=== PATIENT | male | born 1965 | race Caucasian/White ===

== ENCOUNTER 2018-07-31 15:08 | Inpatient (IN) | payer OTHER ==
[~2018-07-31] VITALS: Ht 167.6 cm; Wt 65.8 kg
[2018-07-31] MEDS: NACL 0.9% 1,000 ML IV SCH (00:02)
[2018-07-31 15:28] VITALS: BP 106/71
--- NOTE | 2018-07-31 15:36 | NUR ---
BACK TO [facility] --WILL WAIT FOR AVAILABLE ROOM FOR MD MARES
--- NOTE | 2018-07-31 16:23 | NUR ---
PT TO ER BED 6 VIA WHEELCHAIR
--- NOTE | 2018-07-31 16:35 | NUR ---
PT BIB SELF TO THE ED WITH THE CHIEF C/O RIGHT FOOT PAIN. PT HAS DIABETIC WOUND ON LEFT FOOT. AMPUTATED RIGHT GREAT TOE. BLACK GANGRENE 2ND TOE, FOUL SMELLING. MOVES OTHER TOES. SWELLING FEET. PER PT GREAT TOE WAS AMPUTED ON END OF APR 2018. PT WAS RECOMMENDED TO DO BKA BY HIS DOCTOR BUT PT REFUSED.
[2018-07-31] MEDS ORDERED: NACL 0.9% 500 ML IV SCH (17:31)
--- NOTE | 2018-07-31 17:59 | NUR ---
LAB AT THE BEDSIDE. PT ENCOURAGED TO GIVE URINE FOR UA. URINAL PROVIDED.
--- NOTE | 2018-07-31 18:08 | NUR ---
CALLED [facility] #[phone]. SPOKE TO DEAN. REQUESTED TO FAX MEDICINE LIST OF PT CURRENTLY TAKING MEDS AND INFORMATION ON [facility] FAX [phone]. PT MADE AWARE.
--- NOTE | 2018-07-31 18:11 | NUR ---
EKG BEING DONE AT THIS TIME.
[2018-07-31 18:14] LABS: BASOPHILS # (AUTO) 0.1 K/uL (0.00-0.22); BASOPHILS % (AUTO) 0.8 % (0.0-2.0); EOSINOPHILS # (AUTO) 1.7 K/uL (0-0.4); EOSINOPHILS % (AUTO) 16.9 % (0.0-4.0); HEMATOCRIT 38.2 % (36-52); HEMOGLOBIN 12.9 g/dL (12.0-18.0); LYMPHOCYTES # (AUTO) 1.9 K/uL (2.0-11.5); LYMPHOCYTES % (AUTO) 19.4 % (20.5-51.1); MEAN CORPUSCULAR HEMOGLOBIN 32 pg (27-31); MEAN CORPUSCULAR HGB CONC 34 g/dL (33-37); MEAN CORPUSCULAR VOLUME 93.9 fL (80-94); MONOCYTES # (AUTO) 0.5 K/uL (0.8-1.0); NEUTROPHILS # (AUTO) 5.8 K/uL (1.8-7.7); NEUTROPHILS % (AUTO) 57.9 % (42.2-75.2); PLATELET COUNT (AUTO) 294 K/uL (140-450); RED BLOOD CELL COUNT(AUTO) 4.06 MIL/uL (4.20-6.10); RED CELL DISTRIBUTION WIDTH 14.6 % (11.6-13.7); WHITE BLOOD COUNT (AUTO) 9.9 K/uL (4.8-10.8)
[2018-07-31 18:23] LABS: CARBON DIOXIDE 27.1 mmol/L (21-32); CREATININE 0.9 mg/dL (0.7-1.3); POTASSIUM 4.1 mmol/L (3.5-5.1)
[2018-07-31 18:26] LABS: PROTHROMBIN TIME 10.4 secs (10.8-13.4)
[2018-07-31 18:29] LABS: ALBUMIN 4.1 g/dL (3.4-5.0); TOTAL BILIRUBIN 0.3 mg/dL (0.0-1.0)
[2018-07-31] MEDS ORDERED: NACL 0.9% 1,000 ML IV ONE (18:50)
[2018-07-31] MEDS ORDERED: CLINDAMYCIN 900 MG in DEXTROSE 5% 100 ML IV ONE (18:50)
[2018-07-31] MEDS ORDERED: CLINDAMYCIN 900 MG/6 ML VIAL IV ONE (19:14)
--- NOTE | 2018-07-31 19:23 | NUR ---
REPORT GIVEN TO ASSEMBLYMAN OR WOMAN RN FOR CONTINUITY OF CARE.
[2018-07-31] MEDS ORDERED: MAGN400S60 PO (19:47)
[2018-07-31] MEDS ORDERED: LEVEMIR SUBQ (19:47)
[2018-07-31] MEDS ORDERED: GABA300C PO (19:47)
[2018-07-31] MEDS ORDERED: ATOR10TA PO (19:47)
[2018-07-31] MEDS ORDERED: MULT-1869 PO (19:47)
[2018-07-31] MEDS ORDERED: NA P133E RC (19:47)
[2018-07-31] MEDS ORDERED: DOCU-299 PO (19:47)
[2018-07-31] MEDS ORDERED: HYDR-5122 PO (19:47)
[2018-07-31] MEDS ORDERED: METO50TE2 PO (19:47)
[2018-07-31] MEDS ORDERED: ACET-2619 PO (19:47)
[2018-07-31] MEDS ORDERED: METF1000 PO (19:47)
[2018-07-31] MEDS ORDERED: BISA-213 RC (19:47)
[2018-07-31] MEDS ORDERED: RANI150T8 PO (19:47)
[2018-07-31] MEDS ORDERED: [UNRECOGNIZED DRUG - CODE] PO (19:47)
[2018-07-31] MEDS ORDERED: KEP500 PO (19:47)
--- NOTE | 2018-07-31 19:49 | NUR ---
Patient noted to have existing wounds upon arrival to ER. Photos taken of wound and placed in chart. Wound covered with dressing. Physician informed.
--- NOTE | 2018-07-31 19:50 | NUR ---
Patient will be admitted to care of Dr. weaver. Admited to [facility]. Will go to room 105a. Belongings list completed. Report to ILYA Carrasco. Transfer of care at this time.
[2018-07-31 20:00] VITALS: BP 129/69
--- NOTE | 2018-07-31 20:00 | NUR ---
PATIENT ARRIVED FOR ER, RECEIVED REPORT. ASSESSMENT COMPLETED, MRSA SCREEN COLLECTED AND SENT TO LAB, V/S STABLE, NOTED RIGHT FOOT GANGRENE WRAPPED, PATIENT DENIES PAIN. ADMISSION QUESTIONS COMPLETED. WILL CALL DR GARCIA FOR ORDERS.
--- NOTE | 2018-07-31 20:30 | NUR ---
FLUID BOLUS CONTINUING TO INFUSE
[2018-07-31 20:36] LABS: APPEARANCE,URINE CLEAR (CLEAR); BILIRUBIN,URINE NEGATIVE (NEGATIVE); BLOOD, URINE NEGATIVE (NEGATIVE); COLOR,URINE YELLOW (YELLOW); LEUKOCYTE ESTERASE ,URINE NEGATIVE (NEGATIVE); NITRITE, URINE NEGATIVE (NEGATIVE); UGLUCOSE NEGATIVE (NEGATIVE)
--- NOTE | 2018-07-31 21:37 | NUR ---
CALLED DR MÉNDEZ FOR ORDERS
--- NOTE | 2018-07-31 23:49 | NUR ---
CALL FROM DR JUNIOR, ORDERS TO KEEP PATIENT NPO, HAVE PATIENT CLEARED BY CARDIOLOGY AND TO CALL DR WING Long, VENOUS US AND ARTERIAL US OF RIGHT LEG, CULTURES OF RIGHT TOE, AND ZOSYN 3.375 Q6H.
[2018-08-01] VITALS: BP 130/66
--- NOTE | 2018-08-01 | NUR ---
V/S TAKEN, ALL STABLE NO FEVER
[2018-08-01] MEDS ORDERED: PIPERACILLIN/TAZOBACTAM 3.375 GM VIAL IV ONE ×2 (00:34→05:57)
[2018-08-01] MEDS: PIPER/TAZO 3.375GM/D5W PREMIX 50 ML IV SCH ×4 (00:48→22:31)
[2018-08-01] MEDS: NACL 0.9% 1,000 ML IV SCH ×2 (00:49→16:59)
--- NOTE | 2018-08-01 01:00 | NUR ---
WOUND CARE PROVIDED ACCORDING TO MD ORDER, COLLECTED SPECIMEN FOR WOUND AND SENT LAB FOR CULTURES.
--- NOTE | 2018-08-01 01:30 | NUR ---
CALLED DR DIMAS TO NOTIFY THAT PATIENT NEEDS CLEARANCE FROM CARDIOLOGY PRIOR TO SX PER DR JUNIOR
--- NOTE | 2018-08-01 01:46 | NUR ---
PATIENT C/O PAIN AT IV SITE STARTED NEW IV IN LEFT FA 22 G INFUSING ZOSYN
--- NOTE | 2018-08-01 04:00 | NUR ---
DUE ANTIBIOTIC GIVEN
[2018-08-01] MEDS: CLINDAMYCIN 900 MG in DEXTROSE 5% 100 ML IV SCH ×3 (04:11→20:40)
[2018-08-01] MEDS ORDERED: CLINDAMYCIN 900 MG/6 ML VIAL IV ONE (04:13)
--- NOTE | 2018-08-01 05:26 | NUR ---
LABS BEING DRAWN
[2018-08-01] MEDS: BLOOD GLUCOSE MONITORING 1 DEV DEV FS SCH ×4 (05:35→20:58)
--- NOTE | 2018-08-01 06:06 | NUR ---
DUE ZOSYN GIVEN, ASKED PATIENT TO PUT ON YELLOW GOWN PATIENT SLEEPING
[2018-08-01 07:00] LABS: BASOPHILS # (AUTO) 0.1 K/uL (0.00-0.22); EOSINOPHILS # (AUTO) 1.6 K/uL (0-0.4); EOSINOPHILS % (AUTO) 20.8 % (0.0-4.0); HEMATOCRIT 33.5 % (36-52); HEMOGLOBIN 11.6 g/dL (12.0-18.0); LYMPHOCYTES # (AUTO) 1.7 K/uL (2.0-11.5); MEAN CORPUSCULAR HEMOGLOBIN 32 pg (27-31); MEAN CORPUSCULAR HGB CONC 35 g/dL (33-37); MEAN CORPUSCULAR VOLUME 93.1 fL (80-94); MONOCYTES # (AUTO) 0.5 K/uL (0.8-1.0); MONOCYTES % (AUTO) 6.4 % (1.7-9.3); NEUTROPHILS # (AUTO) 3.8 K/uL (1.8-7.7); NEUTROPHILS % (AUTO) 49.8 % (42.2-75.2); PLATELET COUNT (AUTO) 245 K/uL (140-450); RED CELL DISTRIBUTION WIDTH 14.7 % (11.6-13.7); WHITE BLOOD COUNT (AUTO) 7.7 K/uL (4.8-10.8)
--- NOTE | 2018-08-01 07:21 | NUR ---
ENDORSED PATIENT TO DAY SHIFT NURSE PATIENT STABLE
--- NOTE | 2018-08-01 07:22 | NUR ---
GOT BEDSIDE REPORT FROM ILYA IBARRA. PATIENT ON MED SURGE AND STANDARD PRECAUTIONS IN PLACE. PATIENT AAOX4 AND ON ROOM AIR, NO DISTRESS NOTED. R FOOT GANGRENE. FALL RISK PROTOCOL IN PLACE. IV ON L FA 22 G INFUSING NS AT 75, IV ASYMPTOMATIC PATENT AND INTACT. BED IN LOW POSITION, CALL LIGHT WITHIN REACH, SIDE RAILS X2 UP
[2018-08-01 07:25] LABS: ALBUMIN 3.3 g/dL (3.4-5.0); ANION GAP 14.6 (8-16); CARBON DIOXIDE 25.6 mmol/L (21-32); CREATININE 0.8 mg/dL (0.7-1.3); POTASSIUM 4.2 mmol/L (3.5-5.1); TOTAL BILIRUBIN 0.5 mg/dL (0.0-1.0)
[2018-08-01] MEDS ORDERED: DEXTROSE 50% 50 ML SYR IVP PRN (07:30)
[2018-08-01 07:39] LABS: PROTHROMBIN TIME 10.7 secs (10.8-13.4)
[2018-08-01 08:00] VITALS: BP 117/62
--- NOTE | 2018-08-01 09:58 | NUR ---
PATIENT HAS BEEN SCREENED AND CATEGORIZED HIGH NUTRITION RISK. PATIENT WILL BE SEEN WITHIN 1-2 DAYS OF ADMISSION. 08/01/18-08/02/[address]
--- NOTE | 2018-08-01 10:00 | NUR ---
PATIENT SLEEPING. NO DISTRESS, ON ROOM AIR
--- NOTE | 2018-08-01 12:11 | NUR ---
ADMINISTERED SCHEDULED MEDS. PATIENT TOLERATED WELL
--- NOTE | 2018-08-01 13:27 | NUR ---
08/01/18 RD INITIAL ASSESSMENT COMPLETED PLEASE REFER TO NUTRITION ASSESSMENT UNDER CARE ACTIVITY FOR ESTIMATED NUTRITIONAL NEEDS. 1. CONTINUE NPO MEDICALLY NECESSARY 2. RECOMMEND CCHO DIET WHEN PT IS READY TO RECEIVE NUTRITION. 3. RECOMMEND VITAMIN C 100MG BID 4. DIABETES EDUCATION WAS PROVIDED 5. RD TO FOLLOW-UP 3-5 DAYS, MODERATE RISK KRISTINE NUNES RD
--- NOTE | 2018-08-01 14:15 | NUR ---
PATIENT WATCHING TV, NO DISTRESS NOTED ON ROOM AIR
[2018-08-01 16:00] VITALS: BP 139/68
--- NOTE | 2018-08-01 17:00 | NUR ---
PATIENT WATCHING TV. ON ROOM AIR, NO DISTRESS NOTED
--- NOTE | 2018-08-01 19:05 | NUR ---
GAVE REPORT TO ILYA IBARRA. PATIENT ENDORSED FOR CONTINUITY OF CARE
--- NOTE | 2018-08-01 19:30 | NUR ---
RECEIVED BEDSIDE REPORT FROM DAY SHIFT RN, PATIENT IN BED, NO SIGNS OF DISTRESS, NOTED RIGHT TOW GANGRENE, DRESSING CHANGED, IV IN LEFT FA 22 G INFUSING NS AT 75, EXPLAINED PLAN OF CARE, DR WING Long SAW PATIENT PLAN FOR ECHO TOMORROW FOR CARDIAC CLEARANCE. BED ALARM ON
--- NOTE | 2018-08-01 20:40 | NUR ---
DUE MEDICATIONS GIVEN GAVE 2 UNITS HUMALOG
[2018-08-01] MEDS: INSULIN LISPRO SLIDING SCALE 100 UNITS/ML VIAL SUBQ PRN (20:45)
--- NOTE | 2018-08-01 22:00 | NUR ---
AMBULATED TO RESTROOM NEEDS ONE PERSON ASSISTANCE, WOUND STARTED BLEEDING AFTER AMBULATING PATIENT DENIES PAIN, CHANGED DRESSING
[2018-08-02] VITALS: BP 128/78
--- NOTE | 2018-08-02 00:10 | NUR ---
V/S TAKEN ALL STABLE, PATIENT DENIES PAIN
--- NOTE | 2018-08-02 01:55 | NUR ---
PATIENT SLEEPING IN BED NO SIGNS OF DISTRESS.
[2018-08-02] MEDS: CLINDAMYCIN 900 MG in DEXTROSE 5% 100 ML IV SCH ×3 (04:10→20:33)
[2018-08-02] MEDS: NACL 0.9% 1,000 ML IV SCH ×2 (04:10→18:57)
--- NOTE | 2018-08-02 04:11 | NUR ---
DUE CLEOCIN GIVEN, STARTED NEW BAG OF NS AT 75 ML/HR
[2018-08-02] MEDS: PIPER/TAZO 3.375GM/D5W PREMIX 50 ML IV SCH ×3 (06:17→23:09)
[2018-08-02] MEDS: BLOOD GLUCOSE MONITORING 1 DEV DEV FS SCH ×4 (06:22→21:08)
--- NOTE | 2018-08-02 06:22 | NUR ---
BG 145 NO COVERAGE NEEDED
--- NOTE | 2018-08-02 07:08 | NUR ---
ENDORSED PATIENT TO DAY SHIFT NURSE PATIENT STABLE
--- NOTE | 2018-08-02 07:09 | NUR ---
GOT BEDSIDE REPORT FROM ILYA IBARRA. PATIENT ON MED SURGE AND STANDARD PRECAUTIONS IN PLACE. PATIENT AAOX4 AND ON ROOM AIR, NO DISTRESS NOTED. R FOOT GANGRENE DRESSING INTACT. PATIENT AMBULATORY AND CONTINENT. IV ON L FA 22 G INFUSING NS AT 75, IV ASYMPTOMATIC PATENT AND INTACT. WHEELCHAIR AT BEDSIDE. BED IN LOW POSITION, CALL LIGHT WITHIN REACH, SIDE RAILS X2 UP
[2018-08-02 08:00] VITALS: BP 163/73
[2018-08-02 08:23] LABS: BASOPHILS # (AUTO) 0.1 K/uL (0.00-0.22); BASOPHILS % (AUTO) 1.1 % (0.0-2.0); EOSINOPHILS # (AUTO) 1.1 K/uL (0-0.4); EOSINOPHILS % (AUTO) 17.9 % (0.0-4.0); HEMATOCRIT 32.3 % (36-52); HEMOGLOBIN 11.2 g/dL (12.0-18.0); LYMPHOCYTES # (AUTO) 1.6 K/uL (2.0-11.5); LYMPHOCYTES % (AUTO) 25.5 % (20.5-51.1); MEAN CORPUSCULAR HEMOGLOBIN 32 pg (27-31); MEAN CORPUSCULAR HGB CONC 35 g/dL (33-37); MEAN CORPUSCULAR VOLUME 92.7 fL (80-94); MONOCYTES # (AUTO) 0.6 K/uL (0.8-1.0); MONOCYTES % (AUTO) 9.7 % (1.7-9.3); NEUTROPHILS # (AUTO) 2.9 K/uL (1.8-7.7); NEUTROPHILS % (AUTO) 45.8 % (42.2-75.2); PLATELET COUNT (AUTO) 235 K/uL (140-450); RED BLOOD CELL COUNT(AUTO) 3.48 MIL/uL (4.20-6.10); RED CELL DISTRIBUTION WIDTH 14.9 % (11.6-13.7); WHITE BLOOD COUNT (AUTO) 6.3 K/uL (4.8-10.8)
[2018-08-02 08:43] LABS: ALBUMIN 3.3 g/dL (3.4-5.0); ANION GAP 14.6 (8-16); CARBON DIOXIDE 24.2 mmol/L (21-32); CREATININE 0.8 mg/dL (0.7-1.3); POTASSIUM 3.8 mmol/L (3.5-5.1); TOTAL BILIRUBIN 0.5 mg/dL (0.0-1.0)
--- NOTE | 2018-08-02 09:23 | NUR ---
PATIENT SLEEPING, ON ROOM AIR NO DISTRESS NOTED
--- NOTE | 2018-08-02 12:07 | NUR ---
ADMINISTERED SCHEDULED MED. PATIENT TOLERATED WELL
--- NOTE | 2018-08-02 14:17 | NUR ---
PT. SEEN BY DR. JUNIOR AND PENDING AMPUTATION TO RIGHT FOOT, PLAN OF CARE DISCUSSED WITH PRIMARY RN, RECOMMENDATION TO RIGHT FOOT GANGRENE APPLY SOAKED 4X4 BETADINE SOLUTION, COVER WITH DRY DRESSING AND WRAP WITH KERLIX ROLLS QD AND PRN IF SOILING.
--- NOTE | 2018-08-02 14:32 | NUR ---
MOTHER AT BEDSIDE, PATIENT ON ROOM AIR NO DISTRESS NOTED, WATCHING TV
--- NOTE | 2018-08-02 15:20 | NUR ---
CLEANSED R FOOT WITH NS. SOAKED GAUZE WITH BETADINE, WRAPPED W KERLIX DRESSING. PATIENT DENIED ANY PAIN IN FOOT
[2018-08-02 16:00] VITALS: BP 127/69
--- NOTE | 2018-08-02 16:48 | NUR ---
BLOOD SUGAR OF 136, NO COVERAGE NEEDED
--- NOTE | 2018-08-02 19:20 | NUR ---
GAVE REPORT TO ILYA WILHELM. PATIENT ENDORSED IN STABLE CONDITION. OR NURSE LEATHA SPOKE TO ME AND CHOCO STATING DR. JUNIOR WILL PERFORM SURGERY TOMORROW. PATIENT AWARE
--- NOTE | 2018-08-02 19:20 | NUR ---
RECEIVED REPORT FROM CLEMENTINA CARABALLO DAYSHIFT NURSE AT BEDSIDE FOR CONTINUITY OF CARE, PT N STABLE CONDITION. PT MADE AWARE OF SCHEDULED SURGERY TOMORROW, PER DR. JUNIOR, PT MAY EAT NOW AND BE NPO POST MIDNIGHT. SANDWICH BROUGHT UP FROM KITCHEN REQUESTED.
--- NOTE | 2018-08-02 19:53 | NUR ---
PT IN BED SANDWICH AT BEDSIDE, PT IN BED WITH ALL FALLS PRECAUTIONS IN PLACE, AND CALL LAKHANI IN REACH. PT AOX4 WITH IV SITE ON R HAND 22 GUAGE, INTACT AND FLUSHED PATENT, N/S RUNNING AT 75MLS/HR ORDERED. PT HAS NO C/O OF PAIN . RIGHT FOOT ELEVATED WITH DRESSING INTACT. ALL REQUESTED NEEDS ATTENDED. V/S FOLLOWS T 98.4 P 83 R 18 B/P 142/76 AND 02 98% ON ROOM AIR.
[2018-08-02] MEDS ORDERED: CLINDAMYCIN 900 MG/6 ML VIAL IV ONE (20:28)
--- NOTE | 2018-08-02 20:38 | NUR ---
CLEOCIN HUNG ORDERED AT 100MLS/HR. N/S FLUID REPLACED. PT HAS NO C/O VOICED AT THIS TIME .
[2018-08-02] MEDS: INSULIN LISPRO SLIDING SCALE 100 UNITS/ML VIAL SUBQ PRN (21:10)
--- NOTE | 2018-08-02 21:15 | NUR ---
FINGER STICK IS 160, GIVEN 2 UNITS OF HUMALOG COVERAGE IN LEFT DELTOID. PT REQUEST PAIN MEDICATION, NO PAIN MEDICATION IS ORDERED, CALLED [facility] EMMA SOTO MD FOR DR. GARCIA.
--- NOTE | 2018-08-02 21:22 | NUR ---
DR. BLANCO FITTER TYPE BAR AND SEGMENT ORDERED TORADOL 30MG IVP Q 6HRS PRN FOR PAIN RELIEF. ORDERS PLACED IN EMAR.
[2018-08-02] MEDS ORDERED: KETOROLAC 30 MG/ML VIAL IVP PRN (21:25)
--- NOTE | 2018-08-02 23:49 | NUR ---
KYAW HUNG ORDERED. PT OFFERED TORADOL PRIOR TO WOUND CARE, BUT REFUSED DUE TO POSSIBLE SIDE EFFECTS. RIGHT FOOT REDRESSED UPON REQUEST. V/S FOLLOWS T 98.5 P 78 R 18 B/P 144/75 02 97% ON ROOM AIR.
[2018-08-03] VITALS (10 sets, daily range): BP systolic 118–150; BP diastolic 66–79
--- NOTE | 2018-08-03 01:30 | NUR ---
PT ASLEEP, RESPIRATIONS EVEN AND UNLABORED, NO S/S OF PAIN OR DISTRESS NOTED. ALL FALLS PRECAUTIONS IN PLACE AND NORMAL SALINE RUNNING ORDERED.AT 75MLS/HR. R FOOT ELEVATED ON PILLOW , DRESSINGS DRY AND INTACT.
--- NOTE | 2018-08-03 03:30 | NUR ---
PT IN BED SLEEPING NO S/S OF PAIN OR DISTRESS NOTED, ALL FALLS PRECAUTIONS IN PLACE AND N/S RUNNING AT 75MLS/HR ORDERED.
[2018-08-03] MEDS: CLINDAMYCIN 900 MG in DEXTROSE 5% 100 ML IV SCH ×3 (05:13→20:30)
[2018-08-03] MEDS ORDERED: CLINDAMYCIN 900 MG/6 ML VIAL IV ONE (05:15)
[2018-08-03] MEDS: PIPER/TAZO 3.375GM/D5W PREMIX 50 ML IV SCH ×3 (06:29→23:51)
[2018-08-03] MEDS: BLOOD GLUCOSE MONITORING 1 DEV DEV FS SCH ×4 (06:36→21:09)
--- NOTE | 2018-08-03 06:48 | NUR ---
ZOSYN HUNG ORDERED, RUNNING AT 100MLS/HR, ORDERED. FINGERSTICK IS 151, NO COVERAGE GIVEN DUE TO PT NPO STATUS AND HAVING SURGERY TODAY.
[2018-08-03 06:50] LABS: ALBUMIN 3.2 g/dL (3.4-5.0); ANION GAP 13.9 (8-16); CARBON DIOXIDE 23.9 mmol/L (21-32); CREATININE 0.8 mg/dL (0.7-1.3); POTASSIUM 3.8 mmol/L (3.5-5.1); TOTAL BILIRUBIN 0.3 mg/dL (0.0-1.0)
--- NOTE | 2018-08-03 07:18 | NUR ---
CARE ENDORSED TO CLEMENTINA CARABALLO DAYSHIFT NURSE AT BEDSIDE, PT IN STABLE CONDITION.
--- NOTE | 2018-08-03 07:19 | NUR ---
GOT BEDSIDE REPORT FROM ILYA WILHELM. PATIENT AAOX4 AND ON ROOM AIR, NO DISTRESS NOTED. PATIENT ON MED SURGE, STANDARD PRECAUTIONS IN PLACE, SKIN INTACT. PATIENT UNABLE TO AMBULATE AND CONTINENT WITH URINAL AT BEDSIDE. IV ON R FA 22 G INFUSING NS AT 75, IV ASYMPTOMATIC PATENT AND INTACT. R TOE GANGRENE DRESSING CLEAN DRY AND INTACT. BED IN LOW POSITION, CALL LIGHT WITHIN REACH, SIDE RAILS X2 UP
[2018-08-03] MEDS: NACL 0.9% 1,000 ML IV SCH ×2 (08:00→21:17)
[2018-08-03 09:35] LABS: BASOPHILS % (AUTO) 0.5 % (0.0-2.0); EOSINOPHILS % (AUTO) 17.7 % (0.0-4.0); HEMOGLOBIN 11.4 g/dL (12.0-18.0); LYMPHOCYTES # (AUTO) 1.5 K/uL (2.0-11.5); LYMPHOCYTES % (AUTO) 28.2 % (20.5-51.1); MEAN CORPUSCULAR HEMOGLOBIN 32 pg (27-31); MEAN CORPUSCULAR HGB CONC 34 g/dL (33-37); MEAN CORPUSCULAR VOLUME 92.8 fL (80-94); MONOCYTES # (AUTO) 0.5 K/uL (0.8-1.0); NEUTROPHILS # (AUTO) 2.4 K/uL (1.8-7.7); NEUTROPHILS % (AUTO) 44.6 % (42.2-75.2); PLATELET COUNT (AUTO) 241 K/uL (140-450); RED BLOOD CELL COUNT(AUTO) 3.56 MIL/uL (4.20-6.10); RED CELL DISTRIBUTION WIDTH 14.4 % (11.6-13.7); WHITE BLOOD COUNT (AUTO) 5.4 K/uL (4.8-10.8)
--- NOTE | 2018-08-03 10:43 | NUR ---
CONSENT FOR SURGERY OF R TOE AMPUTATION AND DEBRIDEMENT OF R FOOT SIGNED
--- NOTE | 2018-08-03 10:48 | NUR ---
PATIENT PICKED UP FOR SURGERY
[2018-08-03] MEDS ORDERED: BUPIVACAINE-MPF 0.5% 30 ML VIAL INJ ONE (10:51)
[2018-08-03] MEDS ORDERED: SEVOFLURANE 250 ML BTL INH ONE (11:06)
[2018-08-03] MEDS ORDERED: PROPOFOL 200 MG/20 ML VIAL IV ONE (11:06)
[2018-08-03] MEDS ORDERED: LIDOCAINE 2% 100 MG/5 ML SYR IVP ONE (11:06)
[2018-08-03] MEDS ORDERED: fentaNYL 0.05 MG/ML VIAL ONE (11:13)
[2018-08-03] MEDS ORDERED: MIDAZOLAM 2 MG/2 ML VIAL ONE (11:14)
[2018-08-03] MEDS ORDERED: HYDROmorphone 1 MG/ML AMP IVP PRN (11:25)
[2018-08-03] MEDS ORDERED: ONDANSETRON 4 MG/2 ML VIAL IVP PRN (11:25)
[2018-08-03] MEDS ORDERED: BLOOD GLUCOSE MONITORING 1 DEV DEV FS SCH (12:00)
--- NOTE | 2018-08-03 12:40 | NUR ---
PATIENT BACK FROM OR. PATIENT IN STABLE CONDITION VITALS FOLLOWS: T: 97.9 O2: 98% BP: 119/74 HR: 77 RR:18
[2018-08-03] MEDS: GAUZE TP SCH (13:10)
--- NOTE | 2018-08-03 13:27 | NUR ---
ADMINISTERED SCHEDULED MEDS. PATIENT TOLERATED WELL
--- NOTE | 2018-08-03 15:04 | NUR ---
PATIENT SLEEPING. ON ROOM AIR, NO DISTRESS NOTED, VITALS STABLE POST SURGERY
--- NOTE | 2018-08-03 17:50 | NUR ---
INSTRUCTED PATIENT TO USE INCENTIVE SPIROMETER. PATIENT STATED HE KNOWS HOW TO USE IT AND HAS USED ONE IN THE PAST.
--- NOTE | 2018-08-03 19:15 | NUR ---
RECEIVED REPORT FROM CLEMENTINA CARABALLO DAYSHIFT NURSE AT BEDSIDE FOR CONTINUITY OF CARE, PT IN STABLE CONDITION.
--- NOTE | 2018-08-03 19:15 | NUR ---
GAVE BEDSIDE REPORT TO ILYA WILHELM. PATIENT ENDORSED IN STABLE CONDITION
--- NOTE | 2018-08-03 20:01 | NUR ---
PT SITTING IN BED AOX4, HOB UP 45%. ALL FALLS PRECAUTIONS IN PLACE. PT RT FOOT ELEVATED ON PILLOW AND HAS DRESSING INTACT FROM SURGERY. PT HAS NO C/O OF PAIN AT THIS TIME. LUNGS CLEAR AND BOWEL SOUNDS PRESENT. V/S FOLLOWS T 98.2 P 88 R 18 B/P 150/77 02 97% ON ROOM AIR. N/S RUNNING AT 75MLS/HR ORDERED. IV SITE ON RIGHT F/A 22G INTACT AND FLUSHED PATENT. CALL LAKHANI AND TRAY TABLE IN REACH.
[2018-08-03] MEDS: INSULIN LISPRO SLIDING SCALE 100 UNITS/ML VIAL SUBQ PRN (21:12)
--- NOTE | 2018-08-03 21:15 | NUR ---
PT RUNNING CLECON IV ABT ORDERED. IV SITE INTACT AND FLUSHED PATENT. PT HAS NO C/O OF PAIN AT THIS TIME. PT FINGERSTICK IS 205, HE WAS GIVEN 4 UNITS OF HUMALOG COVERAGE ORDERED. PT SAID THAT HE FEEL THOUGH HE MAY HAVE A BOWEL MOVEMENT SOON. PRIMARY NURSE TOLD HIM THAT WHEN HE FEELS READY TO HAVE A BM THAT WE CAN PUT HIM ON A BED PAULA. PT CONCERNED HOW HE WILL CLEAN HIMSELF, PRIMARY NURSE SAID THAT WE CAN DISCONNECT IV WHEN HE IS ON BED PAULA AND THAT ITS NOT A GOOD IDEA TO GET UP AND BEAR WEIGHT ON THAT FOOT AND THAT EVEN A PIVOT TRANSFER TO [facility] COULD CAUSE HIM TO PUT PRESSURE ON THE FOOT WHICH MAY CAUSE BLEEDING TO THE SITE. PT VERBALIZED UNDERSTANDING.
--- NOTE | 2018-08-03 23:03 | NUR ---
PT HAD A LARGE SOFT BM IN BED. NO C/O OF PAIN REPORTED. PT REMINDED NOT TO PUT WEIGHT ON RIGHT FOOT . PT RIGHT FOOT DRESSINGS INTACT AND LEFT ELEVATED ON A PILLOW WITH HEELS FLOATED.
--- NOTE | 2018-08-03 23:35 | NUR ---
MAYASYN HUNG AND RUNNING ORDERED AT 100M,LS/HR. PT IN BED WITH ALL FALLS PRECAUTIONS IN PLACE V/S FOLLOWS T 97.7 P 82 R 18 B/P 143/72 02 99% ON ROOM AIR. PT DENIES PAIN AT THIS TIME, ALL REQUESTED NEEDS ATTENDED BY STAFF WITH TRAY TABLE AND CALL LAKHANI IN REACH.
--- NOTE | 2018-08-04 02:29 | NUR ---
PT IN BED SLEEPING, ALL FALLS PRECAUTIONS IN PLACE.
[2018-08-04] MEDS: CLINDAMYCIN 900 MG in DEXTROSE 5% 100 ML IV SCH ×3 (04:43→21:06)
--- NOTE | 2018-08-04 05:15 | NUR ---
CLEOCIN HUNG AND RUNNING AT 100MLS /HR ORDERED. PT IN BED RIGHT FOOT ELEVATED ON PILLOW, DRESSINGS INTACT. PT DENIES PAIN.
[2018-08-04] MEDS: PIPER/TAZO 3.375GM/D5W PREMIX 50 ML IV SCH ×2 (06:23→15:54)
[2018-08-04] MEDS: BLOOD GLUCOSE MONITORING 1 DEV DEV FS SCH ×4 (06:35→21:07)
[2018-08-04 06:37] LABS: BASOPHILS % (AUTO) 0.8 % (0.0-2.0); EOSINOPHILS # (AUTO) 0.8 K/uL (0-0.4); EOSINOPHILS % (AUTO) 12.8 % (0.0-4.0); HEMATOCRIT 32.9 % (36-52); HEMOGLOBIN 11.5 g/dL (12.0-18.0); LYMPHOCYTES # (AUTO) 1.2 K/uL (2.0-11.5); LYMPHOCYTES % (AUTO) 20.2 % (20.5-51.1); MEAN CORPUSCULAR HEMOGLOBIN 32 pg (27-31); MEAN CORPUSCULAR HGB CONC 35 g/dL (33-37); MEAN CORPUSCULAR VOLUME 92.4 fL (80-94); MONOCYTES # (AUTO) 0.5 K/uL (0.8-1.0); MONOCYTES % (AUTO) 8.9 % (1.7-9.3); NEUTROPHILS # (AUTO) 3.4 K/uL (1.8-7.7); NEUTROPHILS % (AUTO) 57.3 % (42.2-75.2); PLATELET COUNT (AUTO) 240 K/uL (140-450); RED BLOOD CELL COUNT(AUTO) 3.56 MIL/uL (4.20-6.10); RED CELL DISTRIBUTION WIDTH 14.7 % (11.6-13.7); WHITE BLOOD COUNT (AUTO) 5.9 K/uL (4.8-10.8)
--- NOTE | 2018-08-04 06:40 | NUR ---
PT IN BED ALL FALLS PRECAUTIONS IN PLACE, ZOSYN HUNG ORDERED AND RUNNING AT 100MLS/HR. FINGERSTICK IS 119 NO COVERAGE NEEDED.
[2018-08-04 06:49] LABS: ALBUMIN 3.3 g/dL (3.4-5.0); ANION GAP 15.8 (8-16); CREATININE 0.7 mg/dL (0.7-1.3); POTASSIUM 3.8 mmol/L (3.5-5.1); TOTAL BILIRUBIN 0.4 mg/dL (0.0-1.0)
--- NOTE | 2018-08-04 07:29 | NUR ---
REPORT GIVEN TO KHOA CARABALLO DAYSHIFT NURSE AT BEDSIDE FOR CONTINUITY OF CARE, PT IN STABLE CONDITION.
--- NOTE | 2018-08-04 07:32 | NUR ---
RECEIVED BEDSIDE REPORT FROM APPAREL SALES ASSOCIATE RN. PT IN STABLE CONDITION. AOX4. NO C/O PAIN OR DISCOMFORT. RT FOOT IN DARRON WRAP. S/P RT 2ND TOE AMPUTATION AND DEBRIDEMENT. PRIOR RT BIG TOE AMPUTATION. SKIN OTHERWISE INTACT. ON BEDREST. IV SITE PATENT AND ASYMPTOMATIC, INFUSING IVF PER MD ORDERS. ALL SAFETY PRECAUTIONS IN PLACE, WILL CONTINUE TO MONITOR.
[2018-08-04 08:00] VITALS: BP 123/79
[2018-08-04] MEDS: NACL 0.9% 1,000 ML IV SCH (09:52)
--- NOTE | 2018-08-04 11:27 | NUR ---
PT SLEEPING IN BED, RESPIRATIONS EVEN AND UNLABORED. ALL SAFETY PRECAUTIONS IN PLACE, WILL CONTINUE TO MONITOR.
[2018-08-04] MEDS: INSULIN LISPRO SLIDING SCALE 100 UNITS/ML VIAL SUBQ PRN ×3 (12:20→21:05)
[2018-08-04] MEDS: GAUZE TP SCH (12:28)
--- NOTE | 2018-08-04 12:29 | NUR ---
DRESSING ON RT FOOT CHANGED. SCHEDULED MEDICATIONS ADMINISTERED.
--- NOTE | 2018-08-04 13:54 | NUR ---
2317 SPOKE WITH TRACY IN ADMISSIONS AT [facility] REGARDING PROBABLE TRANSFER BACK TODAY. TRACY SAID HE RECEIVED CLINICAL INFORMATION FAXED YESTERDAY AND PATIENT CAN RETURN TO ROOM 224A. [facility] [phone] CALLED AND SPOKE WITH BK AT [facility] [phone] AND INFORMED HER THAT PATIENT WILL BE RETURNING TO [facility] FOR SKILLED CARE FOR IV ABX, PT, AND WOUND CARE. INFORMED HER THAT DR PATE HAS NOT ROUNDED YET SO IV ABX DURATION UNKNOWN AT THIS TIME. FAXED PT NOTES, WOUND CARE ORDER AND ORDER FOR SN[facility] TRANSFER. PER BK WILL REVIEW NOTES FOR AUTHORIZATION FOR SKILLED CARE.
--- NOTE | 2018-08-04 14:49 | NUR ---
WAS TOLD THAT THE PATIENT DOES NOT NEED IV ANTIBIOTICS. I CALLED BK AT [facility]. PER HER REQUEST FAXED HER THE P.T. NOTES. THE AUTH FOR [facility] IS [id number] THE AUTH FOR [place] IS H [id number] I CALLED TRACY AT [facility] AND GAVE HIM THE AUTH NUMBER. PATIENT WILL GO TO ROOM 106A UNDER DR. DOMINGUEZ AFTER 5P.M. AUTH FOR [facility] IS [id number]. I INFORMED STEFFANY CARABALLO CHARGE NURSE. SHE WILL ARRANGE TIME OF TRANSPORT.
--- NOTE | 2018-08-04 15:48 | NUR ---
I CALLED [facility] AND SET UP [facility] TRANSPORT FOR 8:30P.Gladys COUCH RN AWARE. AUTH [id number].
[2018-08-04 16:00] VITALS: BP 153/65
--- NOTE | 2018-08-04 18:28 | NUR ---
CALLED [facility] TO GIVE REPORT. PHONE RINGS WITHOUT ANYONE PICKING UP.
--- NOTE | 2018-08-04 18:46 | NUR ---
CALLED [facility] TO GIVE REPORT. PHONE RINGS WITHOUT ANYONE PICKING UP.
--- NOTE | 2018-08-04 19:35 | NUR ---
ENDORSED POC TO CASE BRIEFER RN. PT IN STABLE CONDITION.
--- NOTE | 2018-08-04 19:36 | NUR ---
ENDORSED POC TO DRYING MACHINE OPERATOR RN. PT IN STABLE CONDITION.
--- NOTE | 2018-08-04 19:37 | NUR ---
RECEIVED REPORT FROM AM NURSE. PATIENT LYING DOWN IN BED SLEEPING, AROUSABLE BY VOICE. NO DISTRESS NOTED. DENIES ANY PAIN. AAOX4, CALM, COOPERATIVE, SKIN COLOR APPROPRIATE TO ETHNICITY, WARM TO TOUCH. S/P RIGHT 2ND TOE FOOT AMPUTATION YESTERDAY ON 08/03/18. DRESSING IS DRY AND INTACT. PATIENT TO BE DISCHARGED TO [facility] AT 2030 BY [facility] TONIGHT. PATIENT AWARE OF DISCHARGE PLAN. IV SITE INTACT, PATENT, AND INFUSING IVF PER MD ORDERS. SAFETY MEASURES IN PLACE, CALL LIGHT WITHIN REACH. WILL CONTINUE TO MONITOR.
--- NOTE | 2018-08-04 19:47 | NUR ---
REPORT GIVEN TO ARTIS CARABALLO AT [facility].
--- NOTE | 2018-08-04 20:15 | NUR ---
DISCHARGE INSTRUCTIONS PROVIDED TO PATIENT. INSTRUCTIONS ON TRANSFER BACK TO [facility] FOR REHAB PHYSICAL THERAPY, WOUND CARE MANAGEMENT, NEW/CHANGED MEDICATION REGIMEN AND SIDE EFFECTS, AND DIET REGIMEN. ANSWERED ALL OF PATIENT'S QUESTIONS REGARDING TRANSFER. AM NURSE ILYA COUCH ALREADY CALLED [facility] FOR REPORT. AWAITING FOR [facility] TO ARRIVE TO TAKE PATIENT TO [facility]. WILL CONTINUE TO MONITOR.
--- NOTE | 2018-08-04 21:14 | NUR ---
PATIENT LYING DOWN IN BED WATCHING TV. NO DISTRESS NOTED. DENIES ANY PAIN. [facility] NOT ON UNIT YET. AWAITING FOR [facility]. SCHEDULED MEDICATIONS DUE GIVEN. WILL CONTINUE TO MONITOR.
--- NOTE | 2018-08-04 23:15 | NUR ---
[facility] ARRIVED ON UNIT TO TAKE PATIENT TO [facility]. IV SITE REMOVED WITH MINIMAL BLOOD AND LUMEN COMPLETELY INTACT. ID BANDS REMOVED. REPORT GIVEN TO TRANSPORTERS. ALL BELONGINGS WITH PATIENT. PATIENT TRANSFERRED TO [facility] AT THIS TIME IN STABLE CONDITION.
== END 2018-08-04 23:15 | DRG 314 ==
LOC: MED 15:08 → MTU 19:09
PROVIDERS: ADMIT Hospitalist; ATTEND Hospitalist
PROC: 0JBQ0ZZ Excision of Right Foot Subcutaneous Tissue and Fascia, Open Approach (ICD-10-PCS; 2018-08-03)
PROC: 0Y6R0Z0 Detachment at Right 2nd Toe, Complete, Open Approach (ICD-10-PCS; principal; 2018-08-03 11:50)
DX: E11.52 Type 2 diabetes mellitus with diabetic peripheral angiopathy with gangrene (principal); I96 Gangrene, not elsewhere classified; E11.628 Type 2 diabetes mellitus with other skin complications; I10 Essential (primary) hypertension; E78.5 Hyperlipidemia, unspecified; G40.909 Epilepsy, unspecified, not intractable, without status epilepticus; K21.9 Gastro-esophageal reflux disease without esophagitis; Z59.0 Homelessness; Z99.3 Dependence on wheelchair; Z79.84 Long term (current) use of oral hypoglycemic drugs; Z79.899 Other long term (current) drug therapy; Z89.411 Acquired absence of right great toe
CPT/HCPCS: 36415; 71045; 73630; 80053; 81003; 82948; 83605; 83880; 84484; 85025; 85610; 85730; 86886; 86900; 86901; 87040; 87070; 87081; 87086; 88304; 88305; 88311; 93005; 93925; 93971; 96361; 96365; 97530; 99285; J1815; J2001; J2250; J2543; J2704; J3010; J3490; J7030; J7060; Q0092